=== PATIENT | male | born 1940 | race American Indian/Alaskan Native ===

== ENCOUNTER 2016-11-14 14:46 | Inpatient (IN) | payer MEDICARE, BC ==
[2016-11-14 14:48] VITALS: BMI 38.4
--- NOTE | 2016-11-14 14:51 | C.PDOC ---
History Of Present Illness Patient is a 76 y/o M with hx of HTN, hypercholestemia, presenting with chest pain. [facility] when he developed L sided chest pain. EKG via EMS showed ST elevation in AVR. ER attending Dr. Stiles spoke to Code heart MD Dr. Christianson who reports that it is not a code heart but rapid afib with ischemic changes. On arrival to ED, patient is pain free. Was given aspirin and b- ambar by ALS prior to arrival. Denies SOB, fever, chills, abdominal pain, lower extremity pain, weakness or numbness Time Seen by Provider: 11/14/16 14:48 Chief Complaint (Nursing): Chest Pain History/Exam Limitations: no limitations Onset/Duration Of Symptoms: Hrs Current Symptoms Are (Timing): Gone Severity: Mild Recent travel outside of the [place]: No Additional History Per: Patient Past Medical History Reviewed: Historical Data, Nursing Documentation, Vital Signs Vital Signs: Last Vital Signs Temp 98.5 F 11/14/16 14:58 Pulse 79 11/14/16 15:52 Resp 20 11/14/16 15:52 BP 113/72 11/14/16 15:52 Pulse Ox 94 L 11/14/16 15:58 - [facility] RIGHT HEMICOLECTOMY (12/22/06) Family History: States: Unknown Family Hx Review Of Systems Except As Marked, All Systems Reviewed And Found Negative. Constitutional: Negative for: Fever, Chills, Sweats Cardiovascular: Positive for: Chest Pain, Palpitations. Negative for: Light Headedness Respiratory: Negative for: Cough, Shortness of Breath, SOB with Excertion Gastrointestinal: Negative for: Nausea, Vomiting, Abdominal Pain, Diarrhea, Constipation Genitourinary: Negative for: Dysuria Musculoskeletal: Negative for: Neck Pain, Leg Pain Neurological: Positive for: Dizziness Psych: Negative for: Anxiety Physical Exam - Physical Exam Appears: Well, Non-toxic, No Acute Distress Skin: Warm, Dry Head: Atraumatic, Normacephalic Eye(s): bilateral: Normal Inspection, PERRL, EOMI Neck: Supple Chest: Symmetrical, No Tenderness Cardiovascular: Rhythm Regular Respiratory: Normal Breath Sounds, No Accessory Muscle Use, No Rales, No Rhonchi , No Wheezing Gastrointestinal/Abdominal: Soft, No Tenderness, No Mass, No Distention Back: Normal Inspection Extremity: Normal ROM (x4), No Pedal Edema, No Calf Tenderness, Capillary Refill (<2secs), No Swelling Extremity: Bilateral: Normal Color And Temperature Pulses: Left Radial: Normal, Right Radial: Normal Neurological/Psych: Oriented x3, Normal Speech, Normal Cognition Gait: Steady ED Course And Treatment - Laboratory Results Result Diagrams: 11/14/16 14:59 11/14/16 14:59 O2 Sat by Pulse Oximetry: 94 (RA) Pulse Ox Interpretation: Abnormal Critical Care Time - Critical Care Note Total Time (in mins): 30 Documented critical care: time excludes all time spent performing seperately billable procedures. Medical Decision Making Medical Decision Making: Impression: Patient is a 76 y/o M presenting with Left sided chest pain. Hx of HTN and hypercholestemia. Plans: * Blood work up * CXR * Cardizem * Reassess EKG on EMS shows atrial fibrillation at 140bpm with elevation in AVR with global ST depressions. Repeat ekg in ED shows atrial fibrillation at 126bpm with same ischemic changes. Cardizem 15mg IV x 2 given and heart rate improved to 97. Cxray negative. Trop x [address] Vargas and patient accepted to tele for new onset atrial fibrillation. Disposition - Disposition Disposition: HOSPITALIZED Disposition Time: 15:50 Condition: FAIR Forms: [facility] ([facility]) - Clinical Impression Clinical Impression: New onset atrial fibrillation - Scribe Statement The provider has reviewed the documentation as recorded by the Scribe Mariah conrad All medical record entries made by the Scribe were at my direction and personally dictated by me. I have reviewed the chart and agree that the record accurately reflects my personal performance of the history, physical exam, medical decision making, and the department course for this patient. I have also personally directed, reviewed, and agree with the discharge instructions and disposition.
[2016-11-14 15:05] LABS: BASO # 0.1 K/uL (0.0-0.2); BASO % 1.2 % (0.0-2.0); EOS # 0.3 K/uL (0.0-0.7); EOS % 5.4 % (0.0-4.0); HEMOGLOBIN 15.9 g/dL (12.0-18.0); LYMPH # 2.1 K/uL (1.0-4.3); LYMPH % 41.6 % (20.0-40.0); MEAN CELL VOLUME 86.5 fL (80.0-94.0); MEAN CORPUSCULAR HEMOGLOBIN 27.9 pg (27.0-31.0); MEAN CORPUSCULAR HGB CONC 32.3 g/dL (33.0-37.0); MEAN PLATELET VOLUME 8.7 fL (7.2-11.7); MONO # 0.5 K/uL (0.0-0.8); MONO % 9.2 % (0.0-10.0); NEUT # 2.2 K/uL (1.8-7.0); NEUT % 42.6 % (50.0-75.0); NRBC % 0.1 % (0.0-2.0); RBC 5.68 Mil/uL (4.40-5.90); RED CELL DISTRIBUTION WIDTH 15.4 % (11.5-14.5); WHITE BLOOD COUNT 5.1 K/uL (4.8-10.8)
[2016-11-14 15:15] LABS: PROTHROMBIN TIME 11.1 SECONDS (9.7-12.2)
[2016-11-14 15:19] LABS: ALB/GLOB RATIO 1.2 (1.0-2.1)
[2016-11-14 15:20] LABS: CALCIUM 9.2 mg/dl (8.6-10.4); MAGNESIUM 1.9 mg/dL (1.6-2.3)
[2016-11-14 15:27] LABS: CK-MB 1.45 ng/mL (0.0-3.38)
[2016-11-14 15:30] LABS: TROPONIN I 0.044 ng/mL (0.00-0.120)
--- NOTE | 2016-11-14 16:18 | RAD ---
HISTORY: chest pain COMPARISON: None available. TECHNIQUE: Chest, one view. FINDINGS: Examination limited by habitus and hypoinflation. LUNGS: No focal consolidation. Please note that chest x-ray has limited sensitivity for the detection of pulmonary masses. PLEURA: No significant pleural effusion identified. No definite pneumothorax . CARDIOVASCULAR: Heart size appears top normal. OSSEOUS STRUCTURES: Degenerative changes of the spine and shoulders. Acromioclavicular arthropathy. VISUALIZED UPPER ABDOMEN: Unremarkable. OTHER FINDINGS: None. IMPRESSION: No focal consolidation, significant pleural effusion, or definite pneumothorax identified.
[2016-11-14] MEDS ORDERED: Enoxaparin 120 mg Syringe SC SCH (20:00)
[2016-11-14 20:09] LABS: CK-MB 49.5 ng/mL (0.0-3.38)
--- NOTE | 2016-11-14 22:40 | CP.CCUPN ---
CCU Subjective - Physician Review Events Since Last Encounter (Free Text): 11/15/16 The Patient was seen and examined at the bedside, Medical records reviewed, and management issues were discussed and formulated. All clinical/lab/hemodynamic/radiographic data were reviewed The Patient is a 76 Y/O M with PMHx of HTN, HLD and? Atrial fibrillation who presents to the ER with L sided chest pain. Upon arrival to ER, he was already chest pain free, Found to be in A Fib with RVR, started on Cardizem drip, and was given aspirin and b-ambar by ALS prior to arrival. Patient was admitted to the telemetry. ICU called for the second Trop elevated Patient AAOx3, On my initial evaluation Pt in A-Fib 120/min on Cardizem drip in progress @ 5mg/ hr, HR down and cardiazem is off now EKG shows atrial fibrillation with elevation in AVR with inferior ST depressions. Denies CP, SOB, FREITAS/PND, cough or palpitation CCU Objective - Physical Exam Head: Positive for: Atraumatic, Normocephalic Pupils: Positive for: PERRL Extroacular Muscles: Positive for: EOMI Conjunctiva: Positive for: Normal Mouth: Positive for: Moist Mucous Membranes Pharnyx: Positive for: Normal Nose (Internal): Positive for: Normal Inspection Neck: Positive for: Normal Range of Motion, Trachea Midline. Negative for: Meningeal Signs, MIDLINE TENDERNESS, Paraspinal Tenderness, JVD, Lymphadenopathy , Bruit, Other Respiratory/Chest: Positive for: Clear to Auscultation, Good Air Exchange. Negative for: Respiratory Distress, Accessory Muscle Use, Wheezes, Decreased Breath Sounds Cardiovascular: Positive for: Irregular Rhythm, Peripheal Pulses Present, Tachycardic. Negative for: Murmurs Abdomen: Positive for: Normal Bowel Sounds. Negative for: Tenderness, Distention, Peritoneal Signs Upper Extremity: Positive for: Normal Inspection, NORMAL PULSES, Capillary Refill < 2s. Negative for: Cyanosis, Edema Lower Extremity: Positive for: Normal Inspection, NORMAL PULSES, Capillary Refill < 2 s. Negative for: Edema, CALF TENDERNESS Neurological: Positive for: GCS=15, CN II-XII Intact, Speech Normal, Motor Func Grossly Intact, Normal Sensory Function - Medications Active Medications: Active Medications Generic Name Dose Route Start Last Admin Trade Name Freq PRN Reason Stop Dose Admin Colchicine 0.6 mg 08/04/17 10:00 Colocrys PO DAILY ALISA Enoxaparin Sodium 120 mg 11/14/16 20:00 11/14/16 20:22 Lovenox SC 120 mg Q24H ALISA Administration Diltiazem HCl 125 mg/ Sodium 125 mls @ 5 mls/hr 11/14/16 17:00 11/14/16 17:30 Chloride IV 5 mg/hr .Q24H ALISA 5 mls/hr Protocol Administration 5 MG/HR Rosuvastatin Calcium 5 mg 11/14/16 22:00 11/14/16 22:06 Crestor PO 5 mg HS ALISA Administration - Patient Studies Lab Studies: Lab Studies 11/14/16 Range/Units 19:42 Total Creatine Kinase 641 H (55-170) U/L CK-MB (Mass) 49.5 H (0.0-3.38) ng/mL Troponin I, Quant 5.5500 H* (0.00-0.120) ng/mL Laboratory Results - last 24 hr 11/14/16 19:42 Total Creatine Kinase 641 H CK-MB (Mass) 49.5 H Troponin I, Quant 5.5500 H* EKG/Cardiology Studies: Cardiology / EKG Studies 11/14/16 14:49 EKG [ELECTROCARDIOGRAM] Stat Comment: Mode Of Transportation: BED Reason For Exam: cp Review of Systems - Cardiovascular Cardiovascular: absent: As Per HPI, Acrocyanosis, Chest Pain, Chest Pain at Rest , Chest Pain with Activity, Claudication, Diaphoresis, Dyspnea, Dyspnea on Exertion, Edema, Irregular Heart Rhythm, Pain Radiating to Arm/Neck/Jaw, Leg Edema, Leg Ulcers, Lightheadedness, Orthopnea, Palpitations, Paroxysmal Nocturnal Dyspnea, Pedal Edema, Radiating Pain, Rapid Heart Rate, Slow Heart Rate, Syncope, Other, UNREMARKABLE - Respiratory Respiratory: absent: As Per HPI, Cough, Dyspnea, Hemoptysis, Dyspnea on Exertion , Wheezing, Snoring, Stridor, Pain on Inspiration, Chest Congestion, Excessive Mucous Production, Change in Mucous Color, Pain with Coughing, Other, UNREMARKABLE Critical Care Progress Note - Nutrition Nutrition: Nutrition Category Date Time Status Heart Healthy Diet [DIET] Diets 11/14/16 Dinner Active Assessment/Plan (1) ACS (acute coronary syndrome) Current Visit: Yes Status: Acute (2) New onset atrial fibrillation Current Visit: Yes Status: Acute - Assessment and Plan (Free Text) Assessment: Patient stable, No cardiopulmonary complain Continue with telemetry care for hemodynamic and cardiac monitoring ASA/Plavix/BB/Statins Cardiaem drip Anticoagulation with Lovenox 1 mg/Kg q 12H Monitor LABS/LYTES/CBC, XR, EKG Serial EKG and Trop ECHO Supplemental Oxygen Monitor Respiratory
[2016-11-15 06:36] LABS: ALB/GLOB RATIO 1.2 (1.0-2.1); ALBUMIN 3.6 g/dL (3.5-5.0); ALT/SGPT 40 U/L (21-72); AST/SGOT 150 U/L (17-59); BLOOD UREA NITROGEN 18 mg/dL (9-20); CALCIUM 8.8 mg/dl (8.6-10.4); GFR AFRICAN-AMERICAN > 60; GFR NON-AFRICAN AMERICAN 54
[2016-11-15 06:44] LABS: BASO # 0.1 K/uL (0.0-0.2); BASO % 1.1 % (0.0-2.0); EOS # 0.2 K/uL (0.0-0.7); EOS % 3.5 % (0.0-4.0); HEMOGLOBIN 15.2 g/dL (12.0-18.0); LYMPH # 2.2 K/uL (1.0-4.3); LYMPH % 33.8 % (20.0-40.0); MEAN CELL VOLUME 85.3 fL (80.0-94.0); MEAN CORPUSCULAR HGB CONC 32.8 g/dL (33.0-37.0); MEAN PLATELET VOLUME 9.4 fL (7.2-11.7); MONO # 0.5 K/uL (0.0-0.8); NEUT # 3.4 K/uL (1.8-7.0); NEUT % 53.6 % (50.0-75.0); RBC 5.42 Mil/uL (4.40-5.90); RED CELL DISTRIBUTION WIDTH 15.5 % (11.5-14.5); WHITE BLOOD COUNT 6.4 K/uL (4.8-10.8)
[2016-11-15] MEDS ORDERED: Iodixanol 320 MG/ML 100 ML BOTTLE IV ONE (07:06)
[2016-11-15] MEDS ORDERED: Midazolam 2 MG/2 ML VIAL ONE (07:07)
[2016-11-15] MEDS ORDERED: Heparin25000 units/250ml 1/2NS 25,000 UNITS/250 ML BAG IV ONE (07:33)
--- NOTE | 2016-11-15 08:08 | CATH ---
APPROVED REPORT Procedure(s) performed: Left Heart Catheterization Left Ventriculogram Selective Right and Left Coronary Angiography Aortogram Intraaortic Balloon Pump HISTORY dyslipidemia. INDICATION The indication(s) include : non-STEMI (>6 hrs to = 12 hrs), atrial fibrillation. CASE TECHNIQUE The patient was brought electively to the Cardiac Catheterization Laboratory in a fasting state and was prepped and draped in a sterile Hydrochloride subcutaneous anesthesia. A sheath was inserted into the coronary diagnostic catheters. The left coronary system was accessed and visualized with a JL4 catheter. The right coronary system was accessed and visualized with a JR4 catheter. The left ventricle was accessed and visualized with a JR4 catheter. Left ventricular/Aortic Valve gradient assessed on pullback. Left ventriculogram was performed in RAMONE projection. An aortogram of the ascending aorta was performed. The patient tolerated the procedure well and there were no complications associated with the procedure. A 7Fr Datascope 40cc IABP was placed without complications Vessel Analysis The patient's coronary anatomy is right dominant. The left main coronary artery is a medium size vessel . There is a 90% stenosis in the mid segment. The left main bifurcates to the left anterior descending and circumflex. The left anterior descending artery is a medium size vessel with intimal irregularities and without significant stenosis. The circumflex artery is a medium size vessel with intimal irregularities and without significant stenosis. The right coronary artery is a medium size vessel with intimal irregularities and without significant stenosis. Left Ventricle The left ventricular ejection fraction is estimated to be 50%. There was no gradient across the aortic valve upon pullback. Aorta No ascending aortic aneurysm Valves Rylie aortic valve regurgitation Conclusion Severe left main disease. Normal left ventricular function. Recommendations Transfer [place] [facility] [place]G.
--- NOTE | 2016-11-15 08:17 | CP.PCM.CON ---
History of Present Illness - History of Present Illness History of Present Illness: I was asked to see patient by Dr. Vargas. Patient is a 76 year old male with history of HTN, hypercholesterolemia who presents with chest pain. Patient developed substernal chest pressure with associated dyspnea and was brought to [facility]. He was found to be in afib with rapid ventricular response and had inferior T wave inversions. The patient was pain free upon arrival. He was admitted to telemetry and placed on lovenox and cardizem drip. The second troponin was elevated, and therefore he was transferred to ICU. The patient is pain free currently. Review of Systems - Constitutional Constitutional: absent: As Per HPI, Anorexia, Chills, Daytime Sleepiness, Excessive Sweating, Fatigue, Fever, Frequent Falls, Headache, Increased Appetite , Lethargy, Malaise, Night Sweats, Snoring, Sleep Apnea, Weight Gain, Weight Loss, Weakness, Other - EENT Eyes: absent: As Per HPI, Blind Spots, Blurred Vision, Change in Vision, Decreased Night Vision, Diplopia, Discharge, Dry Eye, Exophthalmos, Floaters, Irritation, Itchy Eyes, Loss of Peripheral Vision, Pain, Photophobia, Requires Corrective Lenses, Sees Flashes, Spots in Vision, Tunnel Vision, Other Visual Disturbances, Loss of Vision, Other Ears: absent: As Per HPI, Decreased Hearing, Ear Discharge, Ear Pain, Tinnitus, Abnormal Hearing, Disequilibrium, Dizziness, Other Nose/Mouth/Throat: absent: As Per HPI, Epistaxis, Nasal Congestion, Nasal Discharge, Nasal Obstruction, Nasal Trauma, Nose Pain, Post Nasal Drip, Sinus Pain, Sinus Pressure, Bleeding Gums, Change in Voice, Dental Pain, Dry Mouth, Dysphagia, Halitosis, Hoarsness, Lip Swelling, Mouth Lesions, Mouth Pain, Odynophagia, Sore Throat, Throat Swelling, Tongue Swelling, Facial Pain, Neck Pain, Neck Mass, Other - Cardiovascular Cardiovascular: Chest Pain, Dyspnea - Respiratory Respiratory: Dyspnea - Gastrointestinal Gastrointestinal: absent: As Per HPI, Abdominal Pain, Belching, Bloating, Change in Bowel Habits, Change in Stool Character, Coffee Ground Emesis, Constipation, Cramping, Diarrhea, Dyspepsia, Dysphagia, Early Satiety, Excessive Flatus, Fecal Incontinence, Heartburn, Hematemesis, Hematochezia, Loose Stools, Melena, Nausea, Odynophagia, Temesmus, Vomiting, Other - Genitourinary Genitourinary: absent: As Per HPI, Change in Urinary Stream, Difficulty Urinating, Dysuria, Flank Pain, Hematuria, Pyuria, Nocturia, Urinary Incontinence, Urinary Frequency, Urinary Hesitance, Urinary Urgency, Voiding Freq/Small Amts, Freq UTI, Hx Renal/Bladder Calculi, Hx /Renal Surgery, Bladder Distension, Other - Musculoskeletal Musculoskeletal: absent: As Per HPI, Abnormal Gait, Arthralgias, Atrophy, Back Pain, Deformity, Joint Swelling, Limited Range of Motion, Loss of Height, Muscle Cramps, Muscle Weakness, Myalgias, Neck Pain, Numbness, Radiating Pain into Limb, Stiffness, Tingling, Other - Integumentary Integumentary: absent: As Per HPI, Acne, Alopecia, Bleeding Lesions, Change in Hair, Change in Nails, Change in Pigmentation, Changing Lesions, Dry Skin, Erythema, Furuncle, Hirsutism, Lesions, New Lesions, Non-Healing Lesions, Photosensitivity, Pruritus, Rash, Skin Pain, Skin Ulcer, Sores, Striae, Swelling , Unusual Bruising, Wounds, Jaundice, Other - Neurological Neurological: absent: As Per HPI, Abnormal Gait, Abnormal Hearing, Abnormal Movements, Abnormal Speech, Behavioral Changes, Burning Sensations, Confusion, Convulsions, Disequilibrium, Dizziness, Numbness, Focal Weakness, Frequent Falls , Headaches, Lack of Coordination, Loss of Vision, Memory Loss, Paresthesias, Radicular Pain, Restless Legs, Sensory Deficit, Syncope, Tingling, Tremor, Vertigo, Weakness, Other Visual Disturbances, Other - Psychiatric Psychiatric: absent: As Per HPI, Abnormal Sleep Pattern, Anhedonia, Anxiety, Auditory Hallucinations, Behavioral Changes, Change in Appetite, Change in Libido, Confusion, Depression, Difficulty Concentrating, Hallucinations, Homicidal Ideation, Hopelessness, Irritability, Memory Loss, Mood Swings, Panic Attacks, Paranoia, Suicidal Ideation, Visual Hallucinations, Tactile Hallucinations, Other - Endocrine Endocrine: absent: As Per HPI, Change in Body Appearance, Change in Libido, Cold Intolorance, Deepening of Voice, Excessive Sweating, Fatigue, Flushing, Heat Intolorance, Increase in Ring/Shoe/Hat Size, Palpitations, Polydipsia, Polyphagia, Polyuria, Other - Hematologic/Lymphatic Hematologic: absent: As Per HPI, Easy Bleeding, Easy Bruising, Lymphadenopathy, Other Past Patient History - Past Medical History & Family History Past Medical History?: Yes - Past Social History Smoking Status: Former Smoker - CARDIAC Hx Cardiac Disorders: Yes Hx Hypercholesterolemia: Yes Hx Hypertension: Yes - PULMONARY Hx Respiratory Disorders: No - NEUROLOGICAL Hx Neurological Disorder: No - RENAL Hx Chronic Kidney Disease: No - ENDOCRINE/METABOLIC Hx Endocrine Disorders: No - HEMATOLOGICAL/ONCOLOGICAL Hx Blood Disorders: No - INTEGUMENTARY Hx Dermatological Problems: No - MUSCULOSKELETAL/RHEUMATOLOGICAL Hx Musculoskeletal Disorders: Yes Hx Falls: Yes Hx Gout: Yes - GASTROINTESTINAL Hx Gastrointestinal Disorders: No - GENITOURINARY/GYNECOLOGICAL Hx Genitourinary Disorders: Yes Hx Prostate Cancer: Yes - PSYCHIATRIC Hx Psychophysiologic Disorder: No Hx Substance Use: No - SURGICAL HISTORY Hx Surgeries: Yes Hx Orthopedic Surgery: Yes (TKR, rotator cuff surgery) Hx Tonsillectomy: Yes Other/Comment: prostate surgery, - ANESTHESIA Hx Anesthesia: Yes Hx Anesthesia Reactions: No Meds Allergies/Adverse Reactions: Allergies Allergy/AdvReac Type Severity Reaction Status Date / Time No Known Allergies Allergy Verified 11/14/16 14:47 - Medications Medications: Current Medications Colchicine (Colocrys) 0.6 mg PO DAILY [facility] Enoxaparin Sodium (Lovenox) 120 mg SC Q24H [facility] Last Admin: 11/14/16 20:22 Dose: 120 mg Diltiazem HCl 125 mg/ Sodium (Chloride) 125 mls @ 5 mls/hr IV .Q24H ALISA; 5 MG/ HR PRN Reason: Protocol Last Admin: 11/14/16 17:30 Dose: 5 mg/hr, 5 mls/hr Rosuvastatin Calcium (Crestor) 5 mg PO HS ALISA Last Admin: 11/14/16 22:06 Dose: 5 mg Physical Exam - Constitutional Appears: Non-toxic - Head Exam Head Exam: NORMAL INSPECTION - Eye Exam Eye Exam: Normal appearance - ENT Exam ENT Exam: Mucous Membranes Moist - Neck Exam Neck exam: Positive for: Full Rom - Respiratory Exam Respiratory Exam: NORMAL BREATHING PATTERN - Cardiovascular Exam Cardiovascular Exam: Bradycardia, REGULAR RHYTHM - GI/Abdominal Exam GI & Abdominal Exam: Normal Bowel Sounds - Rectal Exam Rectal Exam: Deferred - Extremities Exam Extremities exam: Negative for: pedal edema - Back Exam Back exam: NORMAL INSPECTION - Neurological Exam Neurological exam: Alert, Oriented x3 - Psychiatric Exam Psychiatric exam: Normal Affect, Normal Mood - Skin Skin Exam: Normal Color Results - Vital Signs Recent Vital Signs: Last Vital Signs Temp 98.4 F 11/15/16 06:00 Pulse 45 L 11/15/16 06:50 Resp 18 11/15/16 07:00 BP 111/76 11/15/16 07:00 Pulse Ox 96 11/15/16 06:50 - Labs Result Diagrams: 11/15/16 06:19 11/15/16 06:17 Labs: Laboratory Results - last 24 hr 11/14/16 11/15/16 11/15/16 19:42 02:45 06:17 WBC RBC Hgb Hct MCV MCH MCHC RDW Plt Count MPV Neut % (Auto) Lymph % (Auto) Custer % (Auto) Eos % (Auto) Baso % (Auto) Neut # Lymph # Custer # Eos # Baso # Sodium 138 Potassium 4.6 Chloride 102 Carbon Dioxide 25 Anion Gap 15 BUN 18 Creatinine 1.3 Est GFR ( Amer) > 60 Est GFR (Non-Af Amer) 54 Random Glucose 76 Calcium 8.8 Phosphorus 3.8 Magnesium 2.0 Total Bilirubin 0.9 AST 150 H D ALT 40 Alkaline Phosphatase 58 Total Creatine Kinase 641 H 1018 H CK-MB (Mass) 49.5 H 82.0 H Troponin I, Quant 5.5500 H* 23.5000 H* Total Protein 6.5 Albumin 3.6 Globulin 2.9 Albumin/Globulin Ratio 1.2 11/15/16 06:19 WBC 6.4 RBC 5.42 Hgb 15.2 Hct 46.3 MCV 85.3 MCH 28.0 MCHC 32.8 L RDW 15.5 H Plt Count 167 MPV 9.4 Neut % (Auto) 53.6 Lymph % (Auto) 33.8 Custer % (Auto) 8.0 Eos % (Auto) 3.5 Baso % (Auto) 1.1 Neut # 3.4 Lymph # 2.2 Custer # 0.5 Eos # 0.2 Baso # 0.1 Sodium Potassium Chloride Carbon Dioxide Anion Gap BUN Creatinine Est GFR ( Amer) Est GFR (Non-Af Amer) Random Glucose Calcium Phosphorus Magnesium Total Bilirubin AST ALT Alkaline Phosphatase Total Creatine Kinase CK-MB (Mass) Troponin I, Quant Total Protein Albumin Globulin Albumin/Globulin Ratio - EKG Data EKG Interpreted by: Myself EKG shows normal: Sinus rhythm Rate: Bradycardia Assessment & Plan (1) ACS (acute coronary syndrome) Assessment and Plan: patient ruled in for myocardial infarction. He will need cardiac catheterization. The risks and benefits were discussed with the patient. Status: Acute (2) HTN (hypertension) Assessment and Plan: blood pressure control Status: Acute (3) Hypercholesterolemia Assessment and Plan: statin therapy Status: Acute (4) New onset atrial fibrillation Assessment and Plan: curretnly in sinus rhythm. likley due to coronary ischemia. will evaluate with cardiac cath. Status: Acute
[2016-11-15 09:21] VITALS: TEMP 98
[2016-11-15 11:08] VITALS: BP 119/72; PULSE 51; RESP 15; O2SAT 90
--- NOTE | 2016-11-15 16:56 | CP.PCM.PN ---
Subjective - Date & Time of Evaluation Date of Evaluation: 11/15/16 Time of Evaluation: 09:15 - Subjective Subjective: Medicine Note- Dr. Vargas's service Patient was seen and examined at bedside. Patient reports no chest pain , palpitations, dyspnea. Patient understands that he will need a CABG and is pending a bed at [facility] [place]. No events overnight, per nursing. Objective - Vital Signs/Intake and Output Vital Signs (last 24 hours): Temp Pulse Resp BP Pulse Ox 98 F 51 L 15 119/72 90 L 11/15/16 08:00 11/15/16 11:00 11/15/16 11:00 11/15/16 10:55 11/15/16 11:00 Intake and Output: 11/15/16 11/15/16 06:59 18:59 Intake Total 110 20 Output Total 1200 450 Balance -1090 -430 - Labs Labs: 11/15/16 06:19 11/15/16 06:17 PT 11.1 SECONDS (9.7-12.2) 11/14/16 14:59 INR 1.0 11/14/16 14:59 APTT 37 SECONDS (21-34) H 11/14/16 14:59 - Constitutional Appears: Non-toxic, No Acute Distress - Head Exam Head Exam: ATRAUMATIC, NORMAL INSPECTION, NORMOCEPHALIC - Eye Exam Pupil Exam: NORMAL ACCOMODATION, PERRL - ENT Exam ENT Exam: Mucous Membranes Moist - Respiratory Exam Respiratory Exam: Clear to Ausculation Bilateral, NORMAL BREATHING PATTERN. absent: Prolonged Expiratory Phase, Rales, Rhonchi, Wheezes - Cardiovascular Exam Cardiovascular Exam: Tachycardia, +S1, +S2 - GI/Abdominal Exam GI & Abdominal Exam: Soft, Normal Bowel Sounds. absent: Tenderness, Diminished Bowel Sounds, Hernia, Hypoactive Bowel Sounds - Extremities Exam Extremities Exam: Normal Capillary Refill, Normal Inspection - Neurological Exam Neurological Exam: Alert, Awake, Oriented x3 - Psychiatric Exam Psychiatric exam: Normal Affect, Normal Mood - Skin Skin Exam: Dry, Intact, Normal Color, Warm Assessment and Plan - Assessment and Plan (Free Text) Assessment: ACS Troponin 0.0440, 5.550, 23.5 Consult Cardio- Dr. Abel Cath on 11/15/16- shows 90% stenosis in mid segment of left main coronary Crestor 20mg PO HS Afib with RVR Per Dr. Abel, likely due to cardiac ischemia Was on Cardizem drip @ 5mg/hr Patient to be transferred to [facility] today for CABG
--- NOTE | 2016-11-15 19:07 | CARD ---
APPROVED REPORT EKG Measurement Heart [id number] <Conclusion> Marked sinus bradycardia with marked sinus arrhythmia ST & T wave abnormality, consider anterolateral ischemia Abnormal ECG
--- NOTE | 2016-11-15 19:10 | CARD ---
APPROVED REPORT EKG Measurement Heart [id number] <Conclusion> Atrial fibrillation with rapid ventricular response Posterior infarct, possibly acute Marked ST abnormality, possible inferolateral subendocardial injury ACUTE [place] / NSTEMI Abnormal ECG
--- NOTE | 2016-11-17 06:32 | HP ---
HISTORY OF PRESENT ILLNESS: A 76-year-old male admitted to the hospital with complaint of weakness, fatigue, tiredness. The patient is having a poor heart. The patient underwent stents in the left main. The patient is from [place] on vacation. SOCIAL HISTORY: The patient does not smoke. PHYSICAL EXAMINATION GENERAL: The patient is awake, alert, and oriented. VITAL SIGNS: Temperature 98, pulse 90. HEENT: Normal limits. NECK: Soft, symmetrical. HEART: Regular. ABDOMEN: Soft. EXTREMITIES: No edema. IMPRESSION: The patient suffers from a ____ heart. The patient is on bed rest, supportive care. Mery Vargas MD
== END 2016-11-15 11:30 | disposition short-term general hospital (02) | DRG 272 ==
LOC: C.ER 14:46 → C.9E 15:51 → C.5T 16:32 → C.9E 16:42 → C.6T 17:25 → C.9I 11-15 04:09
PROVIDERS: ADMIT Internal Medicine Pulmonary Disease; ATTEND Internal Medicine Pulmonary Disease
PROC: 4A023N7 Measurement of Cardiac Sampling and Pressure, Left Heart, Percutaneous Approach (ICD-10-PCS; principal; 2016-11-15)
PROC: 5A02210 Assistance with Cardiac Output using Balloon Pump, Continuous (ICD-10-PCS; 2016-11-15)
PROC: B205YZZ Plain Radiography of Left Heart using Other Contrast (ICD-10-PCS; 2016-11-15)
PROC: B201YZZ Plain Radiography of Multiple Coronary Arteries using Other Contrast (ICD-10-PCS; 2016-11-15)
DX: I21.4 Non-ST elevation (NSTEMI) myocardial infarction (principal); I48.91 Unspecified atrial fibrillation; I10 Essential (primary) hypertension; I25.10 Atherosclerotic heart disease of native coronary artery without angina pectoris; E78.00 Pure hypercholesterolemia, unspecified; Z87.891 Personal history of nicotine dependence; Z85.46 Personal history of malignant neoplasm of prostate; M10.9 Gout, unspecified; E78.5 Hyperlipidemia, unspecified